=== PATIENT | female | born 2000 | race Caucasian/White ===

== ENCOUNTER → 2023-12-22 | Day surgery (SDC) | payer BC ==
[2023-12-21 09:36] VITALS: BMI 27.3
[~2023-12-22] MED LIST: Bacitracin Zinc Ointment 30 gm TUBE ONE; Bupivacaine 0.25% HCL 30 ML VIAL ONE; CEFAZOLIN 2 GM VIAL ONE; Dexamethasone 20 MG/5 ML VIAL ONE; Dexmedetomidine 200 MCG/2 ML VIAL ONE; EPINEPHrine 1 MG/ML VIAL ONE; Gentamicin 80 MG/2 ML VIAL ONE; HYDROcodone/Acetaminophen 5/325 mg Tablet ONE; HYDROmorphone 2 MG/ML VIAL ONE; Heparin 5,000 UNITS/ML VIAL ONE; Ketorolac Tromethamine 30 MG (1 mL) VIAL ONE; Lidocaine 1% (PF) 30 ML VIAL ONE; Lidocaine 2% PF 5 ML VIAL ONE; Ondansetron ODT 8 MG TAB ONE; Ondansetron PF 4 MG/2 ML Vial ONE; PROPOFOL 20 ML ONE; Promethazine HCl 25 MG/ML VIAL ONE; Sodium Chloride 0.9% 100 ML ONE; Tranexamic Acid 1,000 MG/10 ML VIAL ONE; Vancomycin 1 GM VIAL ONE; ePHEDrine Sulfate 50 MG/10 ML VIAL ONE; fentaNYL PF 100 MCG/2 ML SYRINGE ONE
[2023-12-22 10:52] LABS: BHCG - Serum Negative (NEGATIVE); Pregs Control Background? CLEAR/WHITE (CLR/WHITE); Pregs Control Bar Appear? YES (CONTROL BAR)
== END ==
LOC: SDC 09:21
PROVIDERS: ATTEND Plastic Surgery
PROC: 0HBV0ZZ Excision of Bilateral Breast, Open Approach (ICD-10-PCS; principal; 2023-12-22)
DX: N62 Hypertrophy of breast (principal); N64.9 Disorder of breast, unspecified
CPT/HCPCS: 84703; 88305; J0171; J0665; J1100; J1170; J1580; J1644; J1885; J2001; J2405; J2550; J2704; J3370; J3490; Q0162